=== PATIENT | male | born 1980 | race Caucasian/White ===

== ENCOUNTER 2020-01-30 12:26 | Emergency (ER) | payer MEDICAID, SELFPAY ==
[2020-01-30] VITALS (7 sets, daily range): BP systolic 122–172; BP diastolic 72–115; PULSE 68–74; RESP 18; TEMP 36.9; O2SAT 95–99; BMI 41.8
--- NOTE | 2020-01-30 12:21 | ECG_ITS ---
APPROVED REPORT Exam: Resting ECG HR:70 bpm ECG Measurements Heart Rate 70 AXES WI 134 P 49 QRSd 108 QRS -23 QT 398 T 13 QTc 429 Conclusion Normal sinus rhythm Incomplete right bundle branch block Moderate voltage criteria for LVH, may be normal variant Borderline ECG Electronically signed by : Osmany Kitchen, 02/01/2020 13:53:00
--- NOTE | 2020-01-30 12:37 | XR_ITS ---
PROCEDURE: XR CHEST PORTABLE CLINICAL HISTORY: chest pain COMPARISON: No exams were available for comparison FINDINGS: The cardiomediastinal silhouette and pulmonary vascularity are within normal limits. Slight increased markings are present in the left lower lung zone. This may only be due to overlapping vessels. Cannot exclude patchy infiltrate. Upright PA and lateral chest may provide further evaluation. No acute bony abnormalities. IMPRESSION: Possible patchy infiltrate left lower lobe. Dictated by: Juancarlos Lyles MD 01/30/2020 15:27 Juancarlos Lyles MD in [place] 01/30/2020 15:27
--- NOTE | 2020-01-30 12:43 | HMH.EDGENADL ---
ED Disposition Clinical Impression: Atypical chest pain Disposition: Home, Self-Care Condition on Discharge: Good Instructions: DI for Atypical Chest Pain Additional Instructions: Ibuprofen for pain. Follow-up with your primary care doctor for blood pressure and further evaluation of chest pain. Additional instructions for CHEST PAIN: See your physician as soon as possible for further evaluation. Return immediately if worsening chest pain, vomiting, shortness of breath, fever, coughing of blood. Prescriptions: Ibuprofen [Ibuprofen 800mg Tab] 800 mg PO Q8HP PRN #15 tab PRN Reason: Moderate Pain Transmission Status: Received by [id number] Referrals: PCP,No [Non-Staff] - - Critical Care Critical Care Time: No Attestation: On 01/30/20, the high probability of a clinically significant, sudden or life threatening deterioration of the following system(s) required my full and direct attention, intervention and personal management. The time I documented below is in addition to time spent performing reported procedures but includes the following listed in this critical care notation. Medical Decision Making - Medical Records Medical records reviewed: Yes: I reviewed the patient's medical records. - Tima Inquiry Pt receiving controlled substance: No Vital Signs: 01/30/20 12:27 01/30/20 13:00 01/30/20 13:33 Temperature 98.4 F Temperature Source Oral Pulse Rate [Left Radial] 70 70 74 Respiratory Rate 18 Blood Pressure [Right Arm] 159/91 H 169/115 H 172/105 H Blood Pressure Mean [Right Arm] 113 133 127 Blood Pressure Source [Right Arm] Automatic Cuff Automatic Cuff Automatic Cuff Blood Pressure Position [Right Arm] Sitting Sitting Sitting 02 Sat by Pulse Oximetry 99 96 95 Oxygen Delivery Method Room Air Room Air 01/30/20 14:57 01/30/20 15:41 01/30/20 16:00 Temperature Temperature Source Pulse Rate [Left Radial] 72 68 68 Respiratory Rate Blood Pressure [Right Arm] 122/72 133/88 147/95 H Blood Pressure Mean [Right Arm] 88 103 112 Blood Pressure Source [Right Arm] Automatic Cuff Automatic Cuff Automatic Cuff Blood Pressure Position [Right Arm] Sitting Sitting Sitting 02 Sat by Pulse Oximetry 96 96 96 Oxygen Delivery Method Room Air Room Air Room Air - Lab Data Lab results reviewed: Yes: I reviewed the patient's lab results. Lab Results 01/30/20 12:35: WBC 8.4, RBC 5.67, Hgb 16.4, Hct 49.3, MCV 86.9, MCH 29.0, MCHC 33.4, RDW 14.5, Plt Count 210, MPV 8.4, Neut % (Auto) 59.9, Lymph % (Auto) 29.2, [place] % (Auto) 6.4, Eos % (Auto) 3.7, Baso % (Auto) 0.9, Neut # (Auto) 5.0, Lymph # (Auto) 2.5, [place] # (Auto) 0.5, Eos # (Auto) 0.3, Baso # (Auto) 0.1 01/30/20 12:35: Sodium 140, Potassium 3.9, Chloride 99, Carbon Dioxide 30, Anion Gap 14.9, BUN 11, Creatinine 1.00, Estimated Creat Clear 105, Estimated GFR 83, Est GFR ( Amer) 100, Glucose 77, Calcium 10.3 H, Troponin I < 0.01 01/30/20 15:45: Troponin I < 0.01 Result diagrams: 01/30/20 12:35 01/30/20 12:35 Orders (Tests/Meds): ED MEDICATIONS Discontinued Medications Generic Name Dose Route Start Last Admin Trade Name Freq PRN Reason Stop Dose Admin Aspirin 162 mg 01/30/20 12:38 01/30/20 12:39 Aspirin 81mg Chewable Tablet PO 01/30/20 12:39 162 mg ONCE ONE Administration Ketorolac Tromethamine 30 mg 01/30/20 13:40 01/30/20 13:46 Ketorolac 30mg/Ml Vial IV 01/30/20 13:41 30 mg ONCE ONE Administration ORDERS Category Date Time Status Chest XR 2 view (NOT portable) [XR chest 2V] Stat Exams 01/30/20 16:05 Taken Troponin I Q3H Lab 01/30/20 18:45 Ordered - Radiology Data #1 Image(s): Chest Image Reviewed: Yes I reviewed the patient's radiology image Preliminary Findings: Normal/NAD - ECG Data Tracing #1 EKG interpreted by Tom Aden MD: Rhythm: sinus Rate: 70 [place]: Left Ectopy: none Conduction: Incomplete right bundle branch block ST Segment Changes: no
[2020-01-30 12:57] LABS: Chloride 99 mmol/L (98-107); Potassium 3.9 mmoL/L (3.5-5.1); Sodium 140 mmol/L (136-145)
[2020-01-30 12:58] LABS: Basophils # 0.1 K/mm3 (0-0.2); Basophils % 0.9 % (0.1-2.0); Eosinophils # 0.3 K/mm3 (0.0-0.4); Eosinophils % 3.7 % (0.1-12.0); Hematocrit 49.3 % (42.0-52.0); Hemoglobin 16.4 g/dL (14.1-18.0); Lymphocytes # 2.5 K/mm3 (0.7-4.5); Lymphocytes % 29.2 % (10-50); Mean Corpuscular HGB Conc 33.4 g/dL (31.8-35.4); Mean Corpuscular Volume 86.9 fl (80-94); Mean Platelet Volume 8.4 fl (7.4-10.4); Monocytes # 0.5 K/mm3 (0.1-1.0); Monocytes % 6.4 % (1.7-9.3); Neutrophils % 59.9 % (37.0-80.0); Platelet Count 210 K/mm3 (142-424); Red Blood Count 5.67 M/mm3 (4.60-6.20); Red Cell Distribution Width 14.5 % (11.5-17.5); White Blood Count 8.4 K/mm3 (4.8-10.8)
[2020-01-30 13:00] LABS: Anion Gap 14.9 mEq/L (5-15); Blood Urea Nitrogen 11 mg/dl (9-20); Carbon Dioxide 30 mmol/L (22.0-30.0); Creatinine Clearance Estimated 105 mL/min (50-200); Estimated Glomerular Filt Rate 83 ml/min (>60); GFR (African American) 100 ML/MIN (>60)
[2020-01-30 13:01] LABS: Calcium 10.3 mg/dl (8.4-10.2); Glucose 77 mg/dl (74-100)
[2020-01-30 13:13] LABS: Troponin I < 0.01 ng/ml (0.00-0.034)
--- NOTE | 2020-01-30 15:40 | PC.NURSE ---
Lab at bedside
--- NOTE | 2020-01-30 16:05 | XR_ITS ---
PROCEDURE: XR CHEST 2V CLINICAL HISTORY: cp Chest pain COMPARISON: CR XR CHEST PORTABLE from 01/30/2020 FINDINGS: The cardiomediastinal silhouette and pulmonary vascularity are within normal limits. The lungs are clear without infiltrates, suspicious nodules, or pleural effusions. No acute bony abnormalities. IMPRESSION: No acute findings. Dictated by: Juancarlos Lyles MD 01/30/2020 16:42 Juancarlos Lyles MD in [place] 01/30/2020 16:42
[2020-01-30 16:20] LABS: Troponin I < 0.01 ng/ml (0.00-0.034)
== END 2020-01-30 17:00 | disposition home or self-care (01) ==
PROVIDERS: Emergency Provider Emergency Medicine; PCP Family Medicine
DX: R07.89 Other chest pain (principal)
CPT/HCPCS: 36415; 71045; 71046; 80048; 84484; 85025; 93005; 96374; 99283

== ENCOUNTER 2020-02-08 10:43 | Emergency (ER) | payer MEDICAID, SELFPAY ==
[2020-02-08 10:44] VITALS: BP 135/80; PULSE 67; RESP 18; TEMP 36.9; O2SAT 97; BMI 41.8
--- NOTE | 2020-02-08 11:17 | HMH.EDUTC ---
[facility] [place] Clinical Impression: Upper respiratory infection Qualifiers: URI type: unspecified viral URI Qualified Code(s): J06.9 - Acute upper respiratory infection, unspecified Disposition: Home, Self-Care Condition on Discharge: Good Instructions: Preventing the Spread of Coronavirus Discharge Instructions Additional Instructions: You have been tested for COVID19. Your test results may take up to 48 hours. Until your test results are back, please isolate yourself and act as if you are positive. If symptoms worsen, follow up with your PCP or return to [facility]. Prescriptions: Brompheniramine/Pseudoephed/Dm [Bromfed DM Cough Syrup 5mL] 5 ml PO Q4HP PRN #240 ml PRN Reason: Cough Transmission Status: Pending to [id number] Referrals: Seth Cross [Primary Care Provider] - Time of Disposition: 11:21 Medical Decision Making - Tima Inquiry Pt receiving controlled substance: No Orders (Tests/Meds): ORDERS Category Date Time Status Full Resp Panel w/COVID ([facility]) Routine Lab 02/08/20 10:58 Ordered [facility] [place]PI - General Stated complaint: Cough, sore throat Time Seen by Provider: 02/08/20 11:17 - History of Present Illness Provider Complaint: Cough, runny nose, scratchy throat, chest congestion X 3 days. No fever. No vomiting or diarrhea. No loss of smell or taste. 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 Onset (ago): day(s) (3) Location: chest Relieving factors: none Exacerbating factors: none Associated symptoms: denies other symptoms Treatments prior to arrival: none - Related Data Previous Rx's Medication Instructions Recorded Ciprofloxacin/Ciprofloxa HCl 500 mg PO DAILY 7 Days #7 tab 08/20/17 [Ciprofloxacin ER 500 mg Tab] Hydrocod/Acet 5/325 mg [[place] 1 tab PO Q6HP PRN 3 Days #10 tab 08/20/17 5/325mg tablet] Ondansetron [Zofran 4mg ODT] 4 mg PO Q8 4 Days #12 tab.rapdis 08/20/17 Tamsulosin HCl [Flomax 0.4mg 0.4 mg PO HS 10 Days #10 cap 08/20/17 capsule] Ibuprofen [Ibuprofen 800mg Tab] 800 mg PO Q8HP PRN #15 tab 01/30/20 Brompheniramine/Pseudoephed/Dm 5 ml PO Q4HP PRN #240 ml 02/08/20 [Bromfed DM Cough Syrup 5mL] Allergies Allergy/AdvReac Type Severity Reaction Status Date / Time No Known Allergies Allergy Verified 08/20/17 08:37 [facility] History - Hepatitis A Screen Attestation statement:: This patient has been screened for Hepatitis A risk factors. - Social History Alcohol Intake: never ROS Obtained: Yes All systems reviewed & no additional complaints - Constitutional Constitutional: Reports chills, Reports malaise - ENT Ears, Nose, Mouth, and Throat: Reports nasal discharge, Reports sinus pain, Reports sore throat - Respiratory Respiratory: Yes chest congestion Physical Exam - General General appearance: alert, in no apparent distress - Head Head exam: atraumatic, normocephalic, normal inspection - Eye Eye exam: Present: normal appearance, PERRL, EOMI - ENT ENT exam: Present: normal exam, normal oropharynx, mucous membranes moist, TM's normal bilaterally, normal external ear exam - Neck Neck exam: Present: normal inspection, full ROM, trachea midline. Absent: meningismus, lymphadenopathy - Chest Chest inspection: Present: normal inspection, symmetric chest wall rise. Absent: tenderness - Respiratory Respiratory exam: Present: normal lung sounds bilaterally. Absent: respiratory distress - Cardiovascular Cardiovascular exam: Present: regular rate, normal rhythm. Absent: JVD - Abdominal Exam Abdominal exam: Present: soft, normal bowel sounds. Absent: distention, tenderness, guarding - Extremities Exam Extremities exam: Present: normal inspection, full ROM, normal capillary refill. Absent: calf tenderness - Back Exam Back exam: Present: normal inspection. Absent: tenderness - Neurological Exam Neurological exam: Present: alert, oriented X3 - Psychiatric Psychiatric exam: Present: normal affect
[2020-02-08 11:39] VITALS: BP 135/80; PULSE 67; RESP 18; TEMP 36.9; O2SAT 97
[2020-02-09 08:56] LABS: Covid-19 Nasal PCR Sendout UK NOT DETECTED
== END 2020-02-08 11:40 | disposition home or self-care (01) ==
PROVIDERS: Emergency Provider Physician Assistant; PCP Family Medicine
DX: J06.9 Acute upper respiratory infection, unspecified (principal); Z20.828 Contact with and (suspected) exposure to other viral communicable diseases
CPT/HCPCS: 99201; U0003

== ENCOUNTER 2020-12-23 09:04 | Emergency (ER) | payer SELFPAY ==
[2020-12-23 09:30] VITALS: BP 145/92; PULSE 92; RESP 21; TEMP 37.3; O2SAT 99; BMI 37.6
[2020-12-23 09:55] LABS: UTC Strep Screen (Rapid) Positive (Negative)
--- NOTE | 2020-12-23 10:08 | HMH.EDUTC ---
[facility] [place] Disposition Clinical Impression: Strep throat Disposition: Home, Self-Care Condition on Discharge: Good Instructions: Strep Throat, DI for Strep Throat Additional Instructions: *Monitor Temp, Over the counter Motrin or Tylenol as directed/as needed Tylenol every 4 hours and Motrin every 6 hours (as long as your family doctor has told you that you can take it) for fever or pain. and straight to ER if unable to lower temp less than 101.0 after medication given *Warm salt water gargles may help to soothe the throat *Throat Lozenges *Warm fluids like tea with honey may help to soothe the throat *Sleep elevated *Humidifier/Vaporizer *If you did not take Penicillin shot or was unable to, start taking antibiotic immediately and make sure that you take it for the FULL length of time although you should start to feel better in 24-48 hours *change toothbrush and toothpaste 24-48 hours after starting to take antibiotics so you do not reinfect yourself Monitor Temp. Tylenol and/or Ibuprofen as needed. ER if fever is no less than 101 despite alternating Tylenol and Ibuprofen * Encourage fluids, water, Gatorade, powerade, pedialyte if infant/toddler/or child *Cold fluids, popsicles and ice cream may feel good on his throat Follow up IMMEDIATELY for new or worsening symptoms or no Noticeable improvement over the next 48-72 hours. 911 for difficulty breathing or swallowing You were tested for today for COVID19 your test result should be back in the next 24-48 hours, you may call to the [facility] to see if your test results are back in the next 48 hours [phone] [facility] hours are 9am-9pm You was given a handout with instructions for Self Quarantine and Self isolation for while you wait on test results and what to do if they are positive If you are positive the Health Dept will be contacting you also Make sure to take your Vitamins Vit. C Vit D and Zinc if you can take them Prescriptions: Amoxicillin [Amoxicillin 875MG Tab] 875 mg PO Q12H #20 tab Transmission Status: Pending to [id number] Referrals: Navdeep Cross PA [Primary Care Provider] - As needed Forms: Work/School Release Time of Disposition: 10:15 Medical Decision Making - Tima Inquiry Pt receiving controlled substance: No Tima was queried for this patient: No Vital Signs: 12/23/20 09:30 Temperature 99.1 F Temperature Source Oral Pulse Rate [Right Brachial] 92 H Respiratory Rate 21 Blood Pressure [Right Arm] 145/92 H Blood Pressure Mean [Right Arm] 109 Blood Pressure Source [Right Arm] Automatic Cuff Blood Pressure Position [Right Arm] Sitting 02 Sat by Pulse Oximetry 99 Oxygen Delivery Method Room Air - Lab Data Lab results reviewed: Yes: I reviewed the patient's lab results. Lab Results 12/23/20 09:38: Strep Scn Rapid Clinic Positive A Orders (Tests/Meds): ORDERS Category Date Time Status Covid-19 Nasal PCR ([facility]) Routine Lab 12/23/20 09:38 Ordered [facility] [place] HPI - General Stated complaint: covid test Time Seen by Provider: 12/23/20 10:08 Mode of Arrival: Ambulatory Source of Information: Patient Limitations: No Limitations Description of Symptoms (Recalled from Triage Doc. by RN): PATIENT C/O SORE THROAT, DRAINAGE, BODY ACHES, HEADACHE SINCE YESTERDAY. 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
[2020-12-23 10:18] VITALS: BP 145/92; PULSE 92; RESP 21; TEMP 37.3; O2SAT 99
== END 2020-12-23 10:22 | disposition home or self-care (01) ==
PROVIDERS: Emergency Provider Nurse Practitioner; PCP Physician Assistant Medical
DX: J02.0 Streptococcal pharyngitis (principal); Z20.822 Contact with and (suspected) exposure to COVID-19
CPT/HCPCS: 87880; 99203; G0463; U0003

== ENCOUNTER 2023-04-11 10:02 | Emergency (ER) | payer BC, SELFPAY ==
[2023-04-11 11:20] VITALS: BP 142/81; PULSE 88; RESP 18; TEMP 37.2; O2SAT 97; BMI 33.5
[2023-04-11 11:37] LABS: UTC Influenza A Antigen Negative (Negative); UTC Influenza B Antigen Negative (Negative)
--- NOTE | 2023-04-11 11:47 | EXP.UTC ---
Discharge Plan Disposition Patient Disposition: Home, Self-Care Condition: Good Prescriptions Prescriptions: No Action allopurinol 300 MG tablet 300 mg PO DAILY losartan 100 MG tablet 100 mg PO DAILY Wegovy 1.7 mg/0.75 mL pen injector See Rx Instructions .ROUTE .COMPLEX Patient Comments: INJECT 1 PEN INJECTOR SUBCUTANEOUSLY ONCE A WEEK Rx Instructions: INJECT 1 PEN INJECTOR SUBCUTANEOUSLY ONCE A WEEK Referrals Follow up/Referrals: Karen Gordon APRN [Primary Care Provider] - See instructions Activity Restrictions/Add. Instructions Additional Instructions/Restrictions: *Monitor Temp, Over the counter Motrin or Tylenol as directed/as needed Tylenol every 4 hours and Motrin every 6 hours (as long as your family doctor has told you that you can take it) for fever or pain. and straight to ER if unable to lower temp less than 101.0 after medication given *Warm salt water gargles may help to soothe the throat *Throat Lozenges? *Warm fluids like tea with honey may help to soothe the throat? *Sleep elevated *Humidifier/Vaporizer *Follow up IMMEDIATELY for new or worsening symptoms or no Noticeable improvement over the next 48-72 hours. 911 for difficulty breathing or swallowing You were tested for today for COVID19 your test result should be back in the next 24hours, you may check your results on the [facility] My Health Portal If your COVID test is positive you must Quarantine for 5 days Clinical Impressions Clinical Impression: Viral syndrome Instructions Patient Instructions: DI for Viral Syndrome Discharge ED Provider: Kristy Thompson [facility] [place] General Stated complaint: h/a, fever Time Seen by Provider: 04/11/23 11:47 History of Present Illness Provider Complaint: Patients that he started over the weekend having headache, feeling achy headache watery eyes and fever States that several of the people that he worked with over the weekend is now sick States that he feels like he may have the flu or something so today he came in States that his boss wanted him to get tested for the flu and COVID Related Data Home Medications Medication Instructions Recorded Confirmed allopurinol 300 mg tablet 300 mg PO DAILY GOUT 12/23/20 04/11/23 losartan 100 mg tablet 100 mg PO DAILY Hypertension 12/23/20 04/11/23 semaglutide (weight loss) 1.7 See Rx Instructions .Route .COMPLEX 04/11/23 mg/0.75 mL subcutaneous pen injector (Wegovy) Allergies Allergy/AdvReac Type Severity Reaction Status Date / Time No Known Allergies Allergy Verified 04/11/23 11:48 [facility] Disclaimer: The information contained in this section may have been updated after the patient was seen, as this information can be updated by other users. Social History Smoking Status: Unknown if ever smoked alcohol intake: never current occupational status: employed Travel in the last 8 weeks: None ROS Obtained: Yes All systems reviewed & no additional complaints except as documented and Yes Systems reviewed as appropriate & no additional complaints except as documented Constitutional Constitutional: Reports system reviewed and no additional complaints, except as documented, Reports as per HPI, Reports body ache, Reports chills, Reports fever(s) and Reports headache(s) ENT Ears, Nose, Mouth, and Throat: Reports system reviewed and no additional complaints, except as documented, Reports as per HPI, Reports headache(s), Reports nasal congestion and Reports nasal discharge Cardiovascular Cardiovascular: Reports system reviewed and no additional complaints, except as documented and Reports as per HPI Respiratory Respiratory: Reports system reviewed and no additional complaints, except as documented and Reports as per HPI Gastrointestinal Gastrointestingal: Reports system reviewed and no additional complaints, except as documented and as p
[2023-04-11 12:06] VITALS: BP 142/81; PULSE 88; RESP 18; TEMP 37.2; O2SAT 97
== END 2023-04-11 12:00 | disposition home or self-care (01) ==
PROVIDERS: Emergency Provider Nurse Practitioner; PCP Nurse Practitioner Family
DX: U07.1 COVID-19 (principal); R51.9 Headache, unspecified; R50.9 Fever, unspecified; M79.18 Myalgia, other site; R09.81 Nasal congestion
CPT/HCPCS: 87635; 87804; 99212; 99213; G0463

== ENCOUNTER 2023-08-31 09:17 | Outpatient (CLI) | payer BC, SELFPAY ==
[2023-08-31 18:34] LABS: Microscopic, Urine URINE MICROSCOPIC (MICROSCOPIC)
[2023-08-31 19:03] LABS: Basophils # 0.1 K/mm3 (0-0.2); Basophils % 1.2 % (0.1-2.0); Eosinophils # 0.3 K/mm3 (0.0-0.4); Eosinophils % 3.3 % (0.1-12.0); Hematocrit 47.9 % (42.0-52.0); Hemoglobin 15.8 g/dL (14.1-18.0); Lymphocytes # 1.6 K/mm3 (0.7-4.5); Lymphocytes % 21.1 % (10-50); Mean Corpuscular HGB Conc 32.9 g/dL (31.8-35.4); Mean Corpuscular Hemoglobin 29.5 pg (27.0-31.2); Mean Corpuscular Volume 89.7 fl (80-94); Mean Platelet Volume 9.6 fl (7.4-10.4); Monocytes # 0.3 K/mm3 (0.1-1.0); Monocytes % 4.4 % (1.7-9.3); Neutrophils # 5.4 K/mm3 (1.8-7.8); Neutrophils % 70.1 % (37.0-80.0); Platelet Count 207 K/mm3 (142-424); Red Blood Count 5.34 M/mm3 (4.60-6.20); Red Cell Distribution Width 15.5 % (11.5-17.5); White Blood Count 7.7 K/mm3 (4.8-10.8)
[2023-08-31 19:39] LABS: Alanine Aminotransferase 30 U/L (12-78); Albumin Level 4.7 g/dl (3.5-5.0); Albumin/Globulin Ratio 1.7 (1.1-1.8); Alkaline Phosphatase 76 U/L (38-126); Anion Gap 18.4 mEq/L (5-15); Aspartate Amino Transferase 29 U/L (17-59); Bilirubin,Total 0.6 mg/dl (0.2-1.3); Blood Urea Nitrogen 19 mg/dl (9-20); Carbon Dioxide 24 mmol/L (22.0-30.0); Chloride 102 mmol/L (98-107); Chol/HDL Ratio 4.3 (1-3.5); Cholesterol 192 mg/dl (140-200); Estimated Glomerular Filt Rate 81 ml/min (>60); GFR (African American) 98 ML/MIN (>60); Globulin 2.7 g/dL (1.3-3.2); Glucose 89 mg/dl (74-100); HDL Cholesterol 45 mg/dl (40-60); Potassium 4.4 mmoL/L (3.5-5.1); Sodium 140 mmol/L (136-145); Total Protein,Serum 7.4 g/dl (6.3-8.2); Triglycerides 138 mg/dl (30-150); Uric Acid 7.8 mg/dl (3.5-8.5); VLDL Cholesterol 28 mg/dL (0-40)
[2023-08-31 19:50] LABS: Free T4 (Free Thyroxine) 0.93 ng/dl (0.78-2.19)
[2023-08-31 19:52] LABS: Direct LDL Cholesterol 118.38 mg/dL (100-129)
[2023-08-31 20:13] LABS: Thyroid Stimulating Hormone 3.27 uIU/mL (0.465-4.68)
[2023-08-31 21:19] LABS: Iron 83 ug/dL (49-181)
[2023-08-31 21:28] LABS: Hemoglobin A1C 5.4 % (4.0-6.0)
[2023-08-31 21:31] LABS: Total Iron Binding Capacity 329 ug/dL (261-462)
[2023-08-31 21:55] LABS: Ferritin 223 ng/ml (17.9-464)
[2023-08-31 22:01] LABS: Appearance,Urine CLEAR (Clear); Bilirubin,Urine Negative (Negative); Blood, Urine Negative (Negative); Color,Urine YELLOW (Yellow); Glucose,Urine (UA) Negative (Negative); Ketones,Urine Negative (Negative); Leukocyte Esterase,Urine Negative (Negative); Nitrate,Urine Negative (Negative); Protein,Urine Negative (Negative); Specific Gravity, Urine 1.025 (1.005-1.030); Urobilinogen,Urine 0.2 EU/dl (0.2)
[2023-08-31 22:07] LABS: Vitamin B12 389 pg/mL (239-931)
[2023-08-31 22:18] LABS: Total Protein,Urine Random < 5.0 mg/dL (0.0-12.0)
[2023-08-31 22:33] LABS: Bacteria,Urine Trace /lpf; Squamous Epithelial Cell,Urine Occasional #/hpf (0-5); Yeast,Urine Occasional /lpf
[2023-08-31 22:35] LABS: 25-OH Vitamin D, Total < 12.8 ng/mL (30-100)
[2023-09-02 08:48] LABS: HBsAg Screen Negative (Negative); HCV Ab Non Reactive (Non Reactive); HIV Screen 4th Generation wRfx Non Reactive (Non Reactive); Hep A Ab, IGM Negative (Negative); Hep B Core Ab, IgM Negative (Negative)
[2023-09-02 13:15] LABS: Rapid Plasma Reagin Ab Titer Non Reactive titer (NonRea<1:1)
[2023-09-02 22:30] LABS: Neisseria gonorrhoeae, NAA Negative (Negative)
== END 2023-08-31 23:59 | disposition home or self-care (01) ==
LOC: LAB.DROPOF 09-05 09:17
PROVIDERS: PCP Nurse Practitioner Family; Visit Provider Nurse Practitioner Family
DX: I10 Essential (primary) hypertension (principal); M10.9 Gout, unspecified; R53.83 Other fatigue; E66.9 Obesity, unspecified; Z68.41 Body mass index [BMI] 40.0-44.9, adult; G47.33 Obstructive sleep apnea (adult) (pediatric); Z13.1 Encounter for screening for diabetes mellitus; Z11.3 Encounter for screening for infections with a predominantly sexual mode of transmission; Z13.220 Encounter for screening for lipoid disorders; Z79.899 Other long term (current) drug therapy; Z11.4 Encounter for screening for human immunodeficiency virus [HIV]
CPT/HCPCS: 80053; 80061; 80074; 81001; 82306; 82607; 82728; 83036; 83540; 83550; 84156; 84439; 84443; 84550; 85025; 86593; 86703; 87086; 87491; 87591; G0432

== ENCOUNTER 2024-02-22 14:24 | Outpatient (CLI) | payer BC, SELFPAY ==
--- NOTE | 2024-02-22 14:28 | XR_ITS ---
PROCEDURE INFORMATION: Exam: XR Right Foot Exam date and time: 02/22/2024 2:35 PM Age: 43 years old Clinical indication: Pain; Foot; Right; Additional info: Right foot pain TECHNIQUE: Imaging protocol: Radiologic exam of the right foot. Views: 3 or more views. COMPARISON: No relevant prior studies available. FINDINGS: Bones/joints: Hindfoot-midfoot and midfoot-forefoot articulations normal. Metatarsals and phalanges without an acute process. Subtalar and tibiotalar joint normal. Mild degenerative changes at the first metatarsal phalangeal joint. Mild soft tissue swelling about the joint space medially. Metatarsal phalangeal angle 26 degrees. Large formation at the insertion of the Achilles' tendon and early spur formation at the plantar aponeurosis. Soft tissues: See Bones/joints finding. IMPRESSION: 1. Mild degenerative changes at the first metatarsal phalangeal joint. Mild soft tissue swelling about the joint space medially. Moderate valgus deformity. 2. Large formation at the insertion of the Achilles' tendon and early spur formation at the plantar aponeurosis.
--- NOTE | 2024-02-22 14:28 | XR_ITS ---
PROCEDURE INFORMATION: Exam: XR Left Foot Exam date and time: 02/22/2024 2:35 PM Age: 43 years old Clinical indication: Pain; Foot; Left; Additional info: Left foot pain TECHNIQUE: Imaging protocol: Radiologic exam of the left foot. Views: 3 or more views. COMPARISON: No relevant prior studies available. FINDINGS: Bones/joints: Hindfoot-midfoot and midfoot-forefoot articulations normal. Metatarsals and phalanges without an acute process. Subtalar and tibiotalar joint normal. Mild degenerative changes at the first metatarsal phalangeal joint. Mild soft tissue swelling about the joint space medially. Spur formation at the insertion of the Achilles' tendon . Metatarsal phalangeal angle 23 degrees. Soft tissues: See Bones/joints finding. IMPRESSION: 1. Mild degenerative changes at the first metatarsal phalangeal joint. Mild soft tissue swelling about the joint space medially. Moderate valgus deformity. 2. Spur formation at the insertion of the Achilles' tendon .
[2024-02-22 18:34] LABS: Basophils # 0.1 K/mm3 (0-0.2); Basophils % 0.7 % (0.1-2.0); Eosinophils # 0.2 K/mm3 (0.0-0.4); Eosinophils % 2.6 % (0.1-12.0); Hemoglobin 14.8 g/dL (14.1-18.0); Lymphocytes # 2.5 K/mm3 (0.7-4.5); Lymphocytes % 27.2 % (10-50); Mean Corpuscular HGB Conc 34.4 g/dL (31.8-35.4); Mean Corpuscular Hemoglobin 29.3 pg (27.0-31.2); Mean Corpuscular Volume 85.2 fl (80-94); Monocytes # 0.3 K/mm3 (0.1-1.0); Monocytes % 3.6 % (1.7-9.3); Neutrophils # 5.9 K/mm3 (1.8-7.8); Neutrophils % 65.9 % (37.0-80.0); Platelet Count 216 K/mm3 (142-424); Red Blood Count 5.05 M/mm3 (4.60-6.20); Red Cell Distribution Width 15.8 % (11.5-17.5)
[2024-02-22 18:59] LABS: Erythrocyte Sedimentation Rate 16 mm/hr (0-15)
[2024-02-22 19:04] LABS: Alanine Aminotransferase 17 U/L (12-78); Albumin Level 4.6 g/dl (3.5-5.0); Albumin/Globulin Ratio 1.8 (1.1-1.8); Alkaline Phosphatase 64 U/L (38-126); Anion Gap 14.5 mEq/L (5-15); Aspartate Amino Transferase 18 U/L (17-59); Bilirubin,Total 1.1 mg/dl (0.2-1.3); Blood Urea Nitrogen 14 mg/dl (9-20); Calcium 9.7 mg/dl (8.4-10.2); Carbon Dioxide 28 mmol/L (22.0-30.0); Chloride 102 mmol/L (98-107); Estimated Glomerular Filt Rate 81 ml/min (>60); GFR (African American) 98 ML/MIN (>60); Globulin 2.6 g/dL (1.3-3.2); Glucose 60 mg/dl (74-100); Potassium 4.5 mmoL/L (3.5-5.1); Sodium 140 mmol/L (136-145); Total Protein,Serum 7.2 g/dl (6.3-8.2); Uric Acid 4.4 mg/dl (3.5-8.5)
[2024-02-22 19:09] LABS: C-Reactive Protein 27.8 mg/L (0-4)
== END 2024-02-22 23:59 | disposition home or self-care (01) ==
LOC: RAD 14:25
PROVIDERS: PCP Nurse Practitioner Family; Visit Provider Nurse Practitioner Family
DX: M79.671 Pain in right foot (principal); M79.672 Pain in left foot; M10.9 Gout, unspecified
CPT/HCPCS: 73630; 80053; 84550; 85025; 85651; 86140

== ENCOUNTER 2024-08-02 08:17 | Day surgery (SDC) | payer BC, SELFPAY ==
[2024-07-31 17:00] VITALS: BMI 33.6
[2024-08-02] MEDS: LACTATED RINGERS 1000ML 1,000 ML 50 ML IV (08:43)
[2024-08-02 08:47] VITALS: BP 131/76; PULSE 70; RESP 18; TEMP 36.4; O2SAT 98
--- NOTE | 2024-08-02 09:24 | EXP.ANES.CKL ---
[facility] Disclaimer: The information contained in this section may have been updated after the patient was seen, as this information can be updated by other users. Medical History Anxiety Atypical chest pain Depression Hydronephrosis Strep throat Upper respiratory infection Viral syndrome Surgical History H/O hernia repair History of removal of skin mole Family History Grandmother Coronary artery disease Father Cancer prostate Diabetes Anxiety Grandmother Cancer Social History Smoking Status: Never smoker alcohol intake: current alcohol intake frequency: holidays/special occasions only substance use type: denies use current occupational status: employed Travel in the last 8 weeks: None Have you lived/traveled outside [place] in past 30 days?: No Contact w/someone who lives/traveled outside US past 30 days?: No Exposure to someone with infectious disease in past 14 days?: No Do you have a fever (greater than 100.4 F or 38 C)?: No Have you tested positive for COVID-19: No Exposed to someone with COVID-19 in past 14 days?: No Do you have a sore throat?: No Do you have a cough?: No Do you have any weakness?: No Do you have any diarrhea?: No Are you experiencing any unusual bleeding?: No Do you have any muscle aches/pain?: No Do you have any abdominal pain?: No Are you experiencing loss of taste or smell?: No [facility] Anesthesia Checklist Patient Identification Patient Identification: Arm Band and Family Structural Data Admitted From: Home Planned Operative Procedure/s: Colonoscopy, (screening) Consent for Planned Operative Procedure(s) Verified: Yes Verified Documents: Surgical Consent and History and Physical NPO Status Verified Time NPO: 00:00 Additional verifications Patient : No Anesthesia Reactions: No Hx Blood Transfusions: No Blood Transfusion Reaction: No Cephalosporin Allergy: No Previous Colonoscopy: Yes Airway Assessment Mallampati Score:: Class II C-Spine Mobility Assessed: Yes TMJ Mobility Assessed: Yes Dentition: Good Dentition Neurological Assessment Level of Consciousness: Awake, Alert, Appropriate and Follows Commands Hx Seizures: No Numbness or tingling in extremities: No Anesthesia Plan Anesthesia Risk discussed: Yes ASA Class: II Anesthesia Type: MAC Preoperative Comments Pre-Operative Comments: Hypertension, (Manuel Meeks)
--- NOTE | 2024-08-02 10:21 | P.HP_ITS ---
History of Present Illness *Admission Date: 08/02/24 *Reason for visit:: Screening colonoscopy *History of present illness: Mr. Collado is a 44-year-old gentleman who is here for initial screening colonoscopy. The examination is deemed medically necessary for screening colonoscopy. The patient has been seen, interviewed and examined prior to the procedure by both myself and the anesthesia provider. [facility] Disclaimer: The information contained in this section may have been updated after the patient was seen, as this information can be updated by other users. Medical History Anxiety Atypical chest pain Depression Hydronephrosis Strep throat Upper respiratory infection Viral syndrome Surgical History H/O hernia repair History of removal of skin mole Family History Grandmother Coronary artery disease Father Cancer prostate Diabetes Anxiety Grandmother Cancer Social History Smoking Status: Never smoker alcohol intake: current alcohol intake frequency: holidays/special occasions only substance use type: denies use current occupational status: employed Travel in the last 8 weeks: None Have you lived/traveled outside [place] in past 30 days?: No Contact w/someone who lives/traveled outside US past 30 days?: No Exposure to someone with infectious disease in past 14 days?: No Do you have a fever (greater than 100.4 F or 38 C)?: No Have you tested positive for COVID-19: No Exposed to someone with COVID-19 in past 14 days?: No Do you have a sore throat?: No Do you have a cough?: No Do you have any weakness?: No Do you have any diarrhea?: No Are you experiencing any unusual bleeding?: No Do you have any muscle aches/pain?: No Do you have any abdominal pain?: No Are you experiencing loss of taste or smell?: No Other Medical History Have you received the Flu Vaccine for this season: No Have you received the Pneumonia Vaccine: No Review of Systems Review of Systems Review of systems (narrative): Negative *Cardiovascular Comments: Negative *Gastrointestinal Comments: Negative *Genitourinary Comments: Negative *Musculoskeletal Comments: Negative *Neurologic Comments: Negative Meds Home Medications and Allergies Home Medications ?Medication ?Instructions ?Recorded ?Confirmed ?Type allopurinol 300 mg tablet 300 mg PO DAILY GOUT #90 tabs 08/31/23 08/02/24 Rx losartan 100 mg tablet 100 mg PO DAILY Hypertension #90 08/31/23 08/02/24 Rx tabs diclofenac sodium 1 % topical gel 4 g topical QID PRN pain 30 days 03/27/24 08/02/24 Rx (Voltaren Arthritis Pain) #100 grams cholecalciferol (vitamin D3) 1,250 1,250 mcg PO WEEKLY #12 caps 04/20/24 08/02/24 Rx mcg (50,000 unit) capsule tirzepatide (weight loss) 15 15 mg (0.5 mL) SQ WEEKLY #2 mL 06/16/24 08/02/24 Rx mg/0.5 mL subcutaneous pen injector (Zepbound) meloxicam 7.5 mg tablet 7.5 mg PO DAILY PRN pain 08/02/24 08/02/24 History New Prescriptions to Start Prescriptions: Allergies Allergy/AdvReac Type Severity Reaction Status Date / Time No Known Allergies Allergy Verified 08/02/24 08:46 Exam Data for Last 24 hours Vital signs and Labs for Last 24 Hours: Temp Pulse Resp BP Pulse Ox O2 Del Method 97.6 F 70 18 131/76 98 Room Air 08/02/24 08:47 08/02/24 08:47 08/02/24 08:47 08/02/24 08:47 08/02/24 08:47 08/02/24 08:47 I & O for Last 24 hours: Intake & Output 07/30/24 07/31/24 08/01/24 08/02/24 23:59 23:59 23:59 23:59 Weight 241 lb *Routine HEENT Exam Head: Present normocephalic Eye: Present EOMI and PERRL ENT: Present mucous membranes moist *Routine Neck Exam Neck: Present supple *Routine Respiratory Exam Respiratory: Present CTA bilaterally *Routine Cardiovascular Exam Cardiovascular: Present RRR *Routine Abdominal Exam Abdominal: Present soft and normoactive bowel sounds; Absent tenderness *Routine Rectal Exam Rectal:: deferred *Routine Genitalia Exam Genitalia:: deferred *Routine Extremities Exam Extremities: Absent cyanosis, clubbing or edema *Routine Skin Exam Skin: Present warm; Absent rash *Routine Neurological Exam Neurological: Present alert and oriented X3 Assessment and Plan *Assessment and plan (1) Colon cancer screening: Status: Acute Category: Medical Code(s): Z12.11 - Encounter for screening for malignant neoplasm of colon Plan A/P: 1. Screening for colon cancer is the preprocedural diagnosis. The patient will be anesthetized/sedated using MAC sedation. The patient has been seen and examined. Cardiac and lung assessment prior to the examination is stable. Proceed with planned screening colonoscopy.
[2024-08-02 10:29] VITALS: O2SAT 100
--- NOTE | 2024-08-02 10:37 | HMH.PROCNOTE ---
[facility] Procedure Note Date: 08/02/24 Time: 10:57 Procedure Note:: Colonoscopy Procedure Report: Colonoscopy with cold snare polypectomy and cold biopsies Endoscopist: Elliot Gregg II, MD Referring physician: PRINCESS Boogie Date of Procedure: August 02, 2024 Equipment: Olympus 190 variable stiffness pediatric colonoscope Sedation: MAC sedation Indication: Mr. Collado is a 44-year-old gentleman who is here for initial screening colonoscopy. He reports no abdominal pain, weight loss, change in his bowel habits or rectal bleeding. He reports no family history of colon cancer. 2 to 3 months ago he was on a GLP-1 agonist and developed a little constipation and hemorrhoidal bleeding which resolved after discontinuing. Procedure: Prior to the procedure, a history and physical exam was performed, and patient's medications and allergies were reviewed. The risks, benefits and alternatives of the sedation and procedure were discussed with the patient. All questions were answered and informed consent was obtained. The patient was brought to the procedure room. Patient identification and proposed procedure were verified by the physician and the nurse. The patient was placed in a left lateral decubitus position and the scope was passed under direct vision. Throughout the procedure, the patient's blood pressure, pulse, and oxygen saturations were monitored continuously. The colonoscopy was accomplished without difficulty. The patient tolerated the procedure well. Findings: On digital rectal examination there was normal rectal tone. There were no external hemorrhoids. The colonoscope was introduced through the anal canal to the rectum and advanced to the cecum. The ileocecal valve and appendiceal orifice were identified. The scope was advanced a short distance into the ileum which appeared grossly normal. The scope was then withdrawn into the colon. There was a single 4 mm polyp in the descending colon that was removed via cold snare polypectomy. The remaining cecum, ascending, transverse, descending and sigmoid colon were grossly normal. Within the distal rectum there was some mucosal erythema and probable prep proctopathy (not proctitis). Biopsies were taken from this area of the rectum. Upon retroflexion within the rectum there were grade 2 internal hemorrhoids. The preparation was excellent throughout with [place] Preparation Score of 9. The cecal time was 12 minutes. Impression: 1. Diminutive descending colon polyp (4 mm) 2. Grade 2 internal hemorrhoids Plan: I will follow-up the polyp histology and recommend repeat surveillance colonoscopy again in 7 years if the polyp is adenomatous. I would encourage psyllium fiber supplementation on a maintenance basis.
[2024-08-02 11:04] VITALS: BP 122/70; PULSE 76; RESP 16; TEMP 36.6; O2SAT 94
[2024-08-02 11:14] VITALS: BP 114/73; PULSE 69; RESP 17; O2SAT 97
[2024-08-02 11:24] VITALS: BP 121/78; PULSE 71; RESP 17; O2SAT 97
== END 2024-08-02 11:44 | disposition home or self-care (01) ==
PROVIDERS: PCP Nurse Practitioner Family; Visit Provider Internal Medicine Gastroenterology
PROC: 0DJD8ZZ Inspection of Lower Intestinal Tract, Via Natural or Artificial Opening Endoscopic (ICD-10-PCS; CPT 45378; principal; 2024-08-02 10:00)
DX: K63.5 Polyp of colon (principal); K62.1 Rectal polyp; K64.1 Second degree hemorrhoids; Z12.11 Encounter for screening for malignant neoplasm of colon
CPT/HCPCS: 45380; 45385; J7120

== ENCOUNTER 2025-02-06 11:24 | Outpatient (CLI) | payer BC, SELFPAY ==
[2025-02-06 13:13] LABS: Microscopic, Urine URINE MICROSCOPIC (MICROSCOPIC)
[2025-02-06 13:50] LABS: Hematocrit 50.2 % (42.0-52.0); Hemoglobin 16.8 g/dL (14.1-18.0); Immature Granulocytes % 0.3 %; Mean Corpuscular HGB Conc 33.5 g/dL (31.8-35.4); Mean Corpuscular Hemoglobin 28.6 pg (27.0-31.2); Mean Corpuscular Volume 85.5 fl (80-94); Nucleated Red Blood Cells % 0 %; Platelet Count 224 K/mm3 (142-424); Red Blood Count 5.87 M/mm3 (4.60-6.20); Red Cell Distribution Width-SD 43.9 fL; White Blood Count 8.0 K/mm3 (4.8-10.8)
[2025-02-06 14:14] LABS: Albumin Level 5.1 g/dl (3.5-5.0); Chloride 97 mmol/L (98-107); Potassium 4.7 mmoL/L (3.5-5.1); Sodium 139 mmol/L (136-145)
[2025-02-06 14:16] LABS: Amylase 83 U/L (30-110); Blood Urea Nitrogen 16 mg/dl (9-20); Creatinine,Serum 1.10 mg/dl (0.66-1.25); Estimated Glomerular Filt Rate 72 ml/min (>60); GFR (African American) 88 ML/MIN (>60)
[2025-02-06 14:17] LABS: Alanine Aminotransferase 34 U/L (12-78); Albumin/Globulin Ratio 1.4 (1.1-1.8); Alkaline Phosphatase 70 U/L (38-126); Anion Gap 18.7 mEq/L (5-15); Aspartate Amino Transferase 34 U/L (17-59); Bilirubin,Direct 0.1 mg/dl (0.0-0.4); Bilirubin,Indirect 0.9 mg/dL (0.0-0.9); Bilirubin,Total 1.0 mg/dl (0.2-1.3); Bilirubin,Unconjugated 0.9 mg/dL (0.0-1.1); Calcium 9.8 mg/dl (8.4-10.2); Carbon Dioxide 28 mmol/L (22.0-30.0); Globulin 3.6 g/dL (1.3-3.2); Glucose 82 mg/dl (74-100); Iron 83 ug/dL (49-181); Lipase 93 U/L (23-300); Total Protein,Serum 8.7 g/dl (6.3-8.2)
[2025-02-06 14:18] LABS: Cholesterol 170 mg/dl (140-200); Triglycerides 163 mg/dl (30-150)
[2025-02-06 14:29] LABS: Total Iron Binding Capacity 352 ug/dL (261-462)
[2025-02-06 14:35] LABS: Free T4 (Free Thyroxine) 1.11 ng/dl (0.78-2.19)
[2025-02-06 14:46] LABS: Bilirubin,Urine Negative (Negative); Color,Urine YELLOW (Yellow); Glucose,Urine (UA) Negative (Negative); Ketones,Urine Negative (Negative); Leukocyte Esterase,Urine Negative (Negative); PH,Urine 6.5 (5.0-8.5); Protein,Urine Negative (Negative); Specific Gravity, Urine <= 1.005 (1.005-1.030); Urobilinogen,Urine 0.2 EU/dl (0.2)
[2025-02-06 14:49] LABS: Thyroid Stimulating Hormone 3.75 uIU/mL (0.465-4.68)
[2025-02-06 14:53] LABS: Ferritin 321 ng/ml (17.9-464)
[2025-02-06 15:08] LABS: Hepatitis C Ab Qual. W/ RFX NEGATIVE (Negative)
[2025-02-06 15:33] LABS: Squamous Epithelial Cell,Urine Occasional #/hpf (0-5); WBC,Urine Occasional #/hpf (0-3)
[2025-02-06 15:46] LABS: Uric Acid 6.3 mg/dl (3.5-8.5)
[2025-02-06 15:52] LABS: C-Reactive Protein 5.9 mg/L (0-4)
[2025-02-06 16:03] LABS: Hemoglobin A1C 4.7 % (4.0-6.0)
[2025-02-06 16:06] LABS: 25-OH Vitamin D, Total 65.0 ng/mL (30-100)
[2025-02-06 16:30] LABS: RPR W/RFX Titers Nonreactive (Nonreactive)
[2025-02-06 16:36] LABS: Vitamin B12 554 pg/mL (239-931)
[2025-02-06 17:48] LABS: HDL Cholesterol 43 mg/dl (40-60)
--- OUTSIDE RECORDS SUMMARY | 2025-02-07 10:03 | XMS_ITS | Clinical Summary ---
Author Organization [facility] Address [address] [place] [address] Care Team Providers Care Mail Processing Machine Operator Name Role Phone Seth Cross MD Primary Care Provider [phone] Allergies No known active allergies Medications allopurinol (ZYLOPRIM) 100 MG tablet Take 100 mg by mouth Daily. Active ibuprofen (ADVIL,MOTRIN) 200 MG tablet Take 200 mg by mouth Every 6 (Six) Hours As Needed for Mild Pain . Active predniSONE (DELTASONE) 10 MG tablet 6 tabs po qd x 4 day; 4 tabs po qd x 4 day; 2 tabs po qd x 4 day; stop/taperi ng dose x 12 days 48 tablet 01/07/2017 Active naproxen (NAPROSYN) 500 MG tablet Take 1 tablet by mouth 2 (Two) Times a Day With Meals. 60 tablet 01/07/2017 Active Active Problems No known active problems Family History Medical History Relation Name Comments Cancer Father Diabetes Father Heart disease Mother Obesity Mother Relation Name Status Comments Father Mother Social History Tobacco Use Types Packs/Day Years Used Date Smoking Tobacco: Never Abuse Screen Answer Date Recorded Unsafe at Home or Work/School Not on file Feels Threatened by Someone? Not on file 02/2023 Does Anyone Keep You from Co ntacting Others or Doint Things Outside the Home? Not on file 02/02/2023 Physical Sign of Abuse Present Not on file 1 Housing Stability Answer Date Recorded Current Living Arrangements Not on file 01/23 Potentially Unsafe Housing Conditions Not on emery e 02/02/2023 Family and Community Support Answer Ben e Recorded Help with Day-to-Day Activities Not on file 02/02/2023 Lonely or Isolated Not on file 02/02/2023 Employment Answer Date Recorded Do you want help finding or keeping work or a john b? Not on file 02/02/2023 Disabilities Answer Date Recorded Concentrating, Remembering, or Making Decisions Difficulty Not on file 02/02/2023 Doing Errands Independently Difficulty Not on fi le 02/02/2023 Education Answer Date Recorded Help with school or training? Not on file Preferred Language Not on file 02/02/2023 Sex and Gender Information Value Date Recorded Sex Assigned at Not on file Legal Sex Male 5:11 PM EDT Gender Identity Not on file Sexual Orientation Not on file Last Filed Vital Signs Vital Sign Reading Time Taken Comments Blood Pressure - - Pulse 81 01/07/2017 5:46 PM EDT Temperature 36.3 C (97.3 F) 01/07/2017 5:46 PM EDT Respiratory Rate 14 01/07/2017 5:46 PM EDT Oxygen Saturation 99% 01/07/2017 5:46 PM EDT Inhaled Oxygen Concentration - - Weight 124 kg (273 lb 3.2 oz) 01/07/2017 5:46 PM EDT Height 180.3 cm (5' 11 ) 01/07/2017 5:46 PM EDT Body Mass Index 38.1 01/07/2017 5:46 PM EDT Plan of Treatment Health Maintenance Due Date Last Done Comments TDAP/TD VACCINES (1 - Tdap) 1998 ANNUAL PHYSICAL 01/07/2017 HEPATITIS C SCREENING 01/07/2017 COLOGUARD 2024 COLON CANCER SCREENING 5 YEA R SIGMOIDOSCOPY 2024 COLONOSCOPY 2024 [address] CAN[address]ER SCREENING 2024 CT COLONOGRAPHY 2024 FECAL OCCULT BLOOD TEST 2024 FIT Testing (1 year) 2024 INFLUENZA VACCINE 11/23/2024 Pneumococcal Vaccine 0-49 Aged Out No longer eligible based on patient's age to complete this topic Insurance Care Teams Mail Processing Machine Operator Relationship Specialty Start Date End Date Seth Cross MD [address] [place] [address] DR CONLEY, BETHANIE [id number] PCP - General Family Medicine 01/07/17
[2025-02-12 07:11] LABS: HSV-1 DNA Negative (Negative); HSV-2 DNA Negative (Negative)
== END 2025-02-06 23:59 | disposition home or self-care (01) ==
LOC: LAB.DROPOF 02-07 09:52
PROVIDERS: PCP Nurse Practitioner Family; Visit Provider Nurse Practitioner Family
DX: E55.9 Vitamin D deficiency, unspecified (principal); E66.811 Obesity, class 1; Z13.220 Encounter for screening for lipoid disorders; Z11.3 Encounter for screening for infections with a predominantly sexual mode of transmission; M10.9 Gout, unspecified; I10 Essential (primary) hypertension; F41.9 Anxiety disorder, unspecified; F32.A Depression, unspecified; G47.33 Obstructive sleep apnea (adult) (pediatric); E11.9 Type 2 diabetes mellitus without complications; R41.3 Other amnesia
CPT/HCPCS: 80053; 80061; 81001; 82150; 82248; 82306; 82607; 82728; 83036; 83540; 83550; 83690; 84156; 84439; 84443; 84550; 85025; 85651; 86140; 86592; 86803; 87086; 87389; 87491; 87529; 87591; 87661